=== PATIENT | female | born 1985 | race Caucasian/White ===

== ENCOUNTER 2017-01-07 13:51 | Emergency (ER) | payer OTHER ==
[~2017-01-07] VITALS: Ht 160 cm; Wt 63.0 kg
[2017-01-07 13:51] VITALS: BP 121/83; PULSE 94; RESP 15; TEMP 98.9; O2SAT 100
--- NOTE | 2017-01-07 13:51 | NUR ---
Patient to ER bed 04 to gown for evaluation. Side rails up. Report given to Cathy.
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
--- NOTE | 2017-01-07 13:55 | NUR ---
ER at bedside examining patient.
[2017-01-07] MEDS ORDERED: BACITRACIN 1 GM OINT TP ONE (14:15)
[2017-01-07] MEDS ORDERED: LIDOCAINE 1% 10 MG/ML, 20 ML MDV INJ ONE (14:15)
[2017-01-07] MEDS ORDERED: DIPH-TET-PERTUS Vaccine 0.5 ML VIAL (ADACEL) I.M. ONE (14:15)
[2017-01-07] MEDS ORDERED: IBUPROFEN 600 MG TABLET PO ONE (14:15)
[2017-01-07] MEDS ORDERED: LIDOCAINE 1%, 20 ML MDV 20 ML ONE (14:20)
--- NOTE | 2017-01-07 14:30 | NUR ---
Patient has a 7 cm laceration to Left foot . applied sutures using sterile technique. Edges well approximated. Site cleansed with NS. Dressing of applied to site. No bleeding noted. Pt tolerated well.
[2017-01-07] MEDS ORDERED: KETOROLAC TROMETHAMINE 60 MG/2 ML VIAL IM ONE (14:45)
[2017-01-07 15:45] VITALS: BP 121/83; PULSE 94; RESP 15; TEMP 98.9; O2SAT 100
--- NOTE | 2017-01-07 15:46 | NUR ---
Patient given written and verbal discharge instructions and verbalizes understanding. ER MD discussed with patient the results and treatment provided. Patient in stable condition. ID arm band removed. . Patient educated on pain management and to follow up with PMD. Pain Scale 3/10 tolerable for pt. Opportunity for questions provided and answered.
== END 2017-01-07 15:45 | disposition home or self-care (01) ==
LOC: SED 13:51
DX: S92.322A Displaced fracture of second metatarsal bone, left foot, initial encounter for closed fracture (principal); Z88.2 Allergy status to sulfonamides; Z88.8 Allergy status to other drugs, medicaments and biological substances; V87.8XXA Person injured in other specified noncollision transport accidents involving motor vehicle (traffic), initial encounter; Y93.89 Activity, other specified; Y92.89 Other specified places as the place of occurrence of the external cause; Y99.8 Other external cause status
CPT/HCPCS: 12002; 29515; 73630; 90471; 90715; 96372; 99284; J1885; J2001